=== PATIENT | female | born 1950 | race Caucasian/White ===

== ENCOUNTER 2021-03-01 09:44 | Outpatient (CLI) | payer MEDICARE, BC | END 2021-03-01 09:45 | disposition home or self-care (01) | LOC: CSHULT 09:44 | PROVIDERS: ATTEND Internal Medicine | DX: R74.8 Abnormal levels of other serum enzymes (principal); R94.31 Abnormal electrocardiogram [ECG] [EKG] | CPT/HCPCS: 76705; 93005; 93010 ==

== ENCOUNTER 2021-12-09 14:37 | Outpatient (CLI) | payer MEDICARE, BC | END 2021-12-09 14:38 | disposition home or self-care (01) | LOC: CSHMAMMO 14:37 | PROVIDERS: ATTEND Internal Medicine | DX: Z12.31 Encounter for screening mammogram for malignant neoplasm of breast (principal) | CPT/HCPCS: 77063; 77067 ==

== ENCOUNTER 2021-12-26 14:42 | Outpatient (CLI) | payer MEDICARE, BC | END 2021-12-26 14:43 | disposition home or self-care (01) | LOC: CSHMAMMO 14:42 | PROVIDERS: ATTEND Internal Medicine | DX: Z13.820 Encounter for screening for osteoporosis (principal); M85.851 Other specified disorders of bone density and structure, right thigh; M85.852 Other specified disorders of bone density and structure, left thigh; Z78.0 Asymptomatic menopausal state | CPT/HCPCS: 77080 ==

== ENCOUNTER 2023-02-23 13:34 | Outpatient (CLI) | payer MEDICARE, BC | END 2023-02-23 13:35 | disposition home or self-care (01) | LOC: CSHCT 13:34 | PROVIDERS: ATTEND Internal Medicine | DX: Z12.2 Encounter for screening for malignant neoplasm of respiratory organs (principal); Z87.891 Personal history of nicotine dependence | CPT/HCPCS: 71271 ==

== ENCOUNTER 2023-02-23 14:28 | Outpatient (CLI) | payer MEDICARE, BC | END 2023-02-23 14:29 | disposition home or self-care (01) | LOC: CSHMAMMO 14:28 | PROVIDERS: ATTEND Internal Medicine | DX: Z12.31 Encounter for screening mammogram for malignant neoplasm of breast (principal); M85.832 Other specified disorders of bone density and structure, left forearm; M85.831 Other specified disorders of bone density and structure, right forearm | CPT/HCPCS: 71271; 77063; 77067; 77080 ==